=== PATIENT | male | born 1995 | race Caucasian/White ===

== ENCOUNTER 2018-12-30 18:12 | Emergency (ER) | payer OTHER ==
[~2018-12-30] VITALS: Ht 177.8 cm; Wt 72.6 kg
[2018-12-30] MEDS ORDERED: Prednisone20 MG PO (18:42)
== END 2018-12-30 18:50 | disposition home or self-care (01) ==
LOC: ER 18:12
DX: L23.7 Allergic contact dermatitis due to plants, except food (principal); Z88.0 Allergy status to penicillin; Z91.048 Other nonmedicinal substance allergy status
CPT/HCPCS: 96372; 99283-25; J3301